=== PATIENT | female | born 2000 | race American Indian/Alaskan Native ===

== ENCOUNTER 2022-05-14 12:34 | Emergency (ER) | payer OTHER ==
[2022-05-14 13:56] VITALS: BP 108/71
--- NOTE | 2022-05-14 14:24 | XRay Report ---
CHEST 2 VIEWS INDICATION / CLINICAL INFORMATION: asthma. FINDINGS: SUPPORT DEVICES: None. HEART / MEDIASTINUM: No significant abnormality. LUNGS / PLEURA: No significant pulmonary or pleural abnormality. No pneumothorax. ADDITIONAL FINDINGS: No significant additional findings. IMPRESSION: 1. No acute findings. Signer Name: Vinicio Schofield MD Signed: 05/14/2022 2:20 PM Workstation Name: [id number]
--- NOTE | 2022-05-14 17:28 | Emergency Department Report ---
- General Chief Complaint: Adult Asthma Stated Complaint: ASTHMA Source: patient Mode of arrival: Ambulatory Limitations: No Limitations - History of Present Illness Initial Comments: 21-year-old female presents to the ED complaining cough, headache, nasal congestion and shortness of breath. Patient states that she has a history of asthma. She states using her albuterol inhaler . Patient states that she just moved here from out of town and her has . She states that symptom has been going on for the last 2 weeks but has worsened over the last day. Patient denies using any fuba-[id number]-[id number] medication. Patient is alert and oriented x3. No acute distress noted. No ill appearance noted MD Complaint: cough, sore throat, sinus pain - Related Data Previous Rx's Medication Instructions Recorded Last Taken Type Albuterol Mdi (or & Nicu Only) 2 puff IH QID PRN 30 Days #8.5 gram 05/14/22 Unknown Rx [ProAir HFA Inhaler] Azithromycin 250 mg PO DAILY 5 Days #6 tab 05/14/22 Unknown Rx predniSONE [Deltasone] 50 mg PO QDAY 5 Days #5 tab 05/14/22 Unknown Rx Allergies Allergy/AdvReac Type Severity Reaction Status Date / Time No Known Allergies Allergy Verified 05/14/22 13:54 ED Review of Systems ROS: Stated complaint: ASTHMA Other details as noted in HPI Constitutional: denies: chills, fever Eyes: denies: eye pain, eye discharge, vision change ENT: denies: ear pain, throat pain Respiratory: cough. denies: shortness of breath, wheezing Cardiovascular: denies: chest pain, palpitations Endocrine: no symptoms reported Gastrointestinal: denies: abdominal pain, nausea, diarrhea Genitourinary: denies: urgency, dysuria, discharge Musculoskeletal: denies: back pain, joint swelling, arthralgia Skin: denies: rash, lesions Neurological: denies: headache, weakness, paresthesias Psychiatric: denies: anxiety, depression Hematological/Lymphatic: denies: easy bleeding, easy bruising ED Past Medical Hx - Medications Home Medications: Home Medications Medication Instructions Recorded Confirmed Last Taken Type Albuterol Mdi (or & Nicu Only) 2 puff IH QID PRN 30 Days #8.5 gram 05/14/22 Unknown Rx [ProAir HFA Inhaler] Azithromycin 250 mg PO DAILY 5 Days #6 tab 05/14/22 Unknown Rx predniSONE [Deltasone] 50 mg PO QDAY 5 Days #5 tab 05/14/22 Unknown Rx ED Physical Exam - General Limitations: No Limitations General appearance: alert, in no apparent distress - Head Head exam: Present: atraumatic, normocephalic - Eye Eye exam: Present: normal appearance - ENT ENT exam: Present: mucous membranes moist - Neck Neck exam: Present: normal inspection - Respiratory Respiratory exam: Present: normal lung sounds bilaterally. Absent: respiratory distress - Cardiovascular Cardiovascular Exam: Present: regular rate, normal rhythm. Absent: systolic murmur, diastolic murmur, rubs, gallop - GI/Abdominal GI/Abdominal exam: Present: soft, normal bowel sounds - Extremities Exam Extremities exam: Present: normal inspection - Back Exam Back exam: Present: normal inspection - Neurological Exam Neurological exam: Present: alert, oriented X3 - Psychiatric Psychiatric exam: Present: normal affect, normal mood - Skin Skin exam: Present: warm, dry, intact, normal color. Absent: rash ED Course Vital Signs 05/14/22 13:55 Temperature 99.3 F Pulse Rate 94 H Respiratory 20 Rate Blood Pressure 108/71 O2 Sat by Pulse 100 Oximetry ED Medical Decision Making - Radiology Data [facility] [address] [place] [address] XRay Report Signed Patient: NISHA BOWERS MR#: [id number] : 2000 Acct:[id number] Age/Sex: 21 / F ADM Date: 05/14/22 Loc: ED Attending Dr: Ordering Physician: ED MD LACI Date of Service: 05/14/22 Procedure(s): XR chest routine 2V Accession Number(s): [id number] cc: ED MD LACI Fluoro Time In Minutes: CHEST 2 VIEWS INDICATION / CLINICAL INFORMATION: asthma. FINDINGS: SUPPORT DEVICES: None. HEART / MEDIASTINUM: No significant abnormality. LUNGS / PLEURA: No significant pulmonary or pleural abnormality. No pneumothorax. ADDITIONAL FINDINGS: No significant additional findings. IMPRESSION: 1. No acute findings. Signer Name: Vinicio Schofield MD Signed: 05/14/2022 2:20 PM Workstation Name: [id number] Transcribed By: BC Dictated By: Vinicio Schofield MD Electronically Authenticated By: Vinicio Schofield MD Signed Date/Time: 05/14/221419 DD/ 141 TD/TT: - Medical Decision Making 21-year-old female presents to the ED complaining cough, headache, nasal congestion and shortness of breath. Patient states that she has a history of asthma. She states using her albuterol inhaler . Patient states that she just moved here from out of town and her has . She states that symptom has been going on for the last 2 weeks but has worsened over the last day. Patient denies using any [id number] medication. Patient is alert and oriented x3. No acute distress noted. No ill appearance noted. Physical examination no wheezing noted on examination. Patient do has nasal turbulent swollen. Postnasal drip noted. Refill patient albuterol inhaler. Rechecked the patient is resting quietly quietly and comfortable and feeling better. I discussed the results of diagnostic study, my clinical impression and the plan for further treatment with the patient. Patient agrees with plan and discharge at this present time. All question addressed. I have given the patient instruction regarding a diagnosis ,expectation ,follow- up and return precaution. I explained to the patient that emergent condition may arise and to return to the ED for new worsen and any new persisting condition. I have explained the importance of following up with the primary care physician or referral physician listed below has instructed. The patient verbalized understanding of discharge instruction. Critical care attestation.: If time is entered above; I have spent that time in minutes in the direct care of this critically ill patient, excluding procedure time. ED Disposition Clinical Impression: Upper respiratory infection Qualifiers: URI type: unspecified URI Qualified Code(s): J06.9 - Acute upper respiratory infection, unspecified Disposition: 01 HOME / SELF CARE / HOMELESS Is pt being admited?: No Does the pt Need Aspirin: No Condition: Stable Instructions: Upper Respiratory Infection, Adult, Rzzd-[id number] Additional Instructions: Take medication as prescribed return to ED for any worsening symptom Prescriptions: Azithromycin 250 mg PO DAILY 5 Days #6 tab predniSONE [Deltasone] 50 mg PO QDAY 5 Days #5 tab Albuterol Mdi (or & Nicu Only) [ProAir HFA Inhaler] 2 puff IH QID PRN 30 Days #8.5 gram PRN Reason: Shortness Of Breath Referrals: [facility] [Provider Group] - 3-5 Days Forms: Work/School Release Form(ED) Time of Disposition: 17:34
== END 2022-05-14 19:03 | disposition home or self-care (01) ==
LOC: ED 12:34
DX: J06.9 Acute upper respiratory infection, unspecified (principal); J45.909 Unspecified asthma, uncomplicated
CPT/HCPCS: 71046; 99283; 99284

== ENCOUNTER 2022-08-27 09:16 | Emergency (ER) | payer OTHER ==
--- NOTE | 2022-08-27 09:53 | Event Note ---
ED Screening Note Date of service: 08/27/22 Time: 09:50 ED Screening Note: This initial assessment/diagnostic orders/clinical plan/treatment(s) is/are subject to change based on patients health status, clinical progression and re- assessment by fellow clinical providers in the ED. Further treatment and workup at subsequent clinical providers discretion. Patient/guardian urged not to elope from the ED as their condition may be serious if not clinically assessed and managed. Patient with a remote history of depression presents with increasiing depression and SI over the last few weeks. Last SI last week with plan to "use razors." No hallucinations or HI. Initial orders include: My Active Orders 08/27/22 09:48 Mental Health Evaluation ONCE Consult to Mental Health [CONS] Stat Acetaminophen Stat Basic Metabolic Panel Stat Complete Blood Count Auto Diff Stat Drugs of Abuse Panel, Urine Stat Salicylate Stat Urinalysis Complete Stat 08/27/22 09:49 HCG Qualitative, Urine Stat
[2022-08-27 11:34] LABS: Blood Urea Nitrogen 12 mg/dL (7-17); Calcium 9.4 mg/dL (8.4-10.2); Hemolysis Index 5
[2022-08-27 11:36] LABS: BUN/Creatinine Ratio 20
[2022-08-27 11:58] LABS: Basophils % (Auto) 0.6 % (0.0-1.8); Eosinophils # (Auto) 0.2 K/mm3 (0.0-0.4); Hematocrit 38.8 % (30.3-42.9); Lymphocytes # (Auto) 1.6 K/mm3 (1.2-5.4); Mean Corpuscular HGB Conc 33 % (30-34); Mean Corpuscular Volume 77 fl (79-97); Monocytes # (Auto) 0.5 K/mm3 (0.0-0.8); Monocytes % (Auto) 8.5 % (0.0-7.3); Platelet Count 229 K/mm3 (140-440); Red Blood Count 5.08 M/mm3 (3.65-5.03); Red Cell Distribution Width 18.2 % (13.2-15.2)
--- NOTE | 2022-08-27 12:23 | Emergency Department Report ---
ED General Adult HPI - General Chief complaint: Psych Stated complaint: KIMBERLEE HELTON Time Seen by Provider: 08/27/22 12:09 Source: patient, RN notes reviewed Mode of arrival: Ambulatory Limitations: No Limitations - History of Present Illness Initial comments: This is a 22-year-old female who presents to the department today with a request for psychiatric evaluation. She denies physical pain. Currently, she is not homicidal or suicidal. She denies hallucinations and access to guns or firearms. She occasionally consumes cigarettes. Last week, she was feeling suicidal. She is not suicidal today. She is not homicidal today. -: days(s), week(s) Severity scale (0 -10): 0 Consistency: intermittent Improves with: none Worsens with: none - Related Data Previous Rx's Medication Instructions Recorded Last Taken Type Albuterol Mdi (or & Nicu Only) 2 puff IH QID PRN 30 Days #8.5 gram 05/14/22 Unknown Rx [ProAir HFA Inhaler] Azithromycin 250 mg PO DAILY 5 Days #6 tab 05/14/22 Unknown Rx predniSONE [Deltasone] 50 mg PO QDAY 5 Days #5 tab 05/14/22 Unknown Rx Allergies Allergy/AdvReac Type Severity Reaction Status Date / Time No Known Allergies Allergy Verified 08/27/22 09:49 ED Review of Systems ROS: Stated complaint: KIMBERLEE HELTON Other details as noted in HPI Comment: All other systems reviewed and negative Psychiatric: as per HPI. denies: homicidal thoughts, suicidal thoughts ED Past Medical Hx - Medications Home Medications: Home Medications Medication Instructions Recorded Confirmed Last Taken Type Albuterol Mdi (or & Nicu Only) 2 puff IH QID PRN 30 Days #8.5 gram 05/14/22 Unknown Rx [ProAir HFA Inhaler] Azithromycin 250 mg PO DAILY 5 Days #6 tab 05/14/22 Unknown Rx predniSONE [Deltasone] 50 mg PO QDAY 5 Days #5 tab 05/14/22 Unknown Rx ED Physical Exam - General Limitations: No Limitations General appearance: alert, in no apparent distress - Head Head exam: Present: atraumatic, normocephalic - Eye Eye exam: Present: normal appearance, EOMI. Absent: nystagmus - ENT ENT exam: Present: normal exam, normal orophraynx, mucous membranes moist, normal external ear exam - Neck Neck exam: Present: normal inspection, full ROM. Absent: tenderness, meningismus - Respiratory Respiratory exam: Present: normal lung sounds bilaterally. Absent: respiratory distress, wheezes, rales, rhonchi, stridor, decreased breath sounds - Cardiovascular Cardiovascular Exam: Present: regular rate, normal rhythm, normal heart sounds. Absent: bradycardia, tachycardia, irregular rhythm, systolic murmur, diastolic murmur, rubs, gallop - GI/Abdominal GI/Abdominal exam: Present: soft. Absent: distended, tenderness, guarding, rebound, rigid, pulsatile mass - Extremities Exam Extremities exam: Present: normal inspection, full ROM, other (2+ pulses noted in the bilateral upper and lower extremities. There is no palpable cord. negative Homans sign. Muscular compartments are soft. The pelvis is stable.). Absent: pedal edema, calf tenderness - Back Exam Back exam: Present: normal inspection, full ROM. Absent: tenderness, CVA tenderness (R), CVA tenderness (L), paraspinal tenderness, vertebral tenderness - Neurological Exam Neurological exam: Present: alert, oriented X3, normal gait, other (No facial droop. Tongue midline. Extraocular movements intact bilaterally. Facial sensation intact to light touch in V1, V2, V3 distribution bilaterally. 5 and a 5 strength in 4 extremities. Sensation intact to light touch in 4 extremities.). Absent: motor sensory deficit - Psychiatric Psychiatric exam: Present: normal mood. Absent: homicidal ideation - Skin Skin exam: Present: warm, dry, intact, normal color. Absent: rash ED Course Vital Signs 08/27/22 09:42 Temperature 98.3 F Pulse Rate 70 Respiratory 18 Rate Blood Pressure 114/89 [Right] O2 Sat by Pulse 100 Oximetry - Reevaluation(s) Reevaluation #1: 08/27/22 13:15 Differential diagnosis, including but not limited to: Behavioral health screening, medical screening Assessment and plan: 22-year-old female, who is currently clinically sober, with a GCS of 15. She is not currently homicidal or suicidal. She is awake, alert, oriented, of sound mind and exhibits decision-making capacity. Her physical examination is benign, unremarkable, and noncontributory. The patient does not meet criteria for 1013 hold or involuntary confinement at this time. Incidentally, the patient requested STI testing while here in the emergency room, abdomen soft and benign, she has no rebound, guarding or peritoneal signs, throat is clear, and she has not endorsed any irritative or obstructive urinary symptoms. Patient advised that STI testing is not an emergent condition, and she can follow-up with an outpatient primary care doctor, urgent care center, or health department for STI testing. She would like to speak to a mental health professional, have placed consultation. I anticipate recommendations for discharge with outpatient follow-up. At the moment, the patient does not appear to have an immediate medical contraindication at this time which would preclude discharge to outpatient follow-up. In the very unlikely event and anticipated events that the psychiatric team advised 1013, the patient at this point time does not appear to have an immediate medical contraindication that would preclude psychiatric placement, disposition and transfer. 08/27/22 14:26 Patient sleeping comfortably and in no acute distress. As expected, the psychiatry team have recommended outpatient follow-up. They do not recommend a 1013. Patient may be discharged to follow-up as an outpatient ED Medical Decision Making - Lab Data Result diagrams: 08/27/22 10:46 08/27/22 10:46 Vital Signs 08/27/22 09:42 Temperature 98.3 F Pulse Rate 70 Respiratory 18 Rate Blood Pressure 114/89 [Right] O2 Sat by Pulse 100 Oximetry Lab Results 08/27/22 08/27/22 08/27/22 Range/Units 10:46 10:46 10:46 WBC 6.1 (4.5-11.0) K/mm3 RBC 5.08 H (3.65-5.03) M/mm3 Hgb 13.0 (10.1-14.3) gm/dl Hct 38.8 (30.3-42.9) % MCV 77 L (79-97) fl MCH 26 L (28-32) pg MCHC 33 (30-34) % RDW 18.2 H (13.2-15.2) % Plt Count 229 (140-440) K/mm3 Lymph % (Auto) 26.0 (13.4-35.0) % Pondera % (Auto) 8.5 H (0.0-7.3) % Eos % (Auto) 4.0 (0.0-4.3) % Baso % (Auto) 0.6 (0.0-1.8) % Lymph # (Auto) 1.6 (1.2-5.4) K/mm3 Pondera # (Auto) 0.5 (0.0-0.8) K/mm3 Eos # (Auto) 0.2 (0.0-0.4) K/mm3 Baso # (Auto) 0.0 (0.0-0.1) K/mm3 Seg Neutrophils % 60.9 (40.0-70.0) % Seg Neutrophils # 3.7 (1.8-7.7) K/mm3 Sodium 141 (137-145) mmol/L Potassium 4.0 (3.6-5.0) mmol/L Chloride 106.0 (98-107) mmol/L Carbon Dioxide 24 (22-30) mmol/L Anion Gap 15 mmol/L BUN 12 (7-17) mg/dL Creatinine 0.6 (0.6-1.2) mg/dL Estimated GFR > 60 ml/min BUN/Creatinine Ratio 20 % Glucose 86 (65-100) mg/dL Calcium 9.4 (8.4-10.2) mg/dL HCG, Quant (0-4) mIU/mL Urine Bilirubin (Negative) Urine RBC (Auto) (0.0-6.0) /HPF U Epithel Cells (Auto) (0-13.0) /HPF Salicylates < 0.3 L (2.8-20.0) mg/dL Acetaminophen (10.0-30.0) ug/mL 08/27/22 08/27/22 08/27/22 Range/Units 10:46 12:24 12:41 WBC (4.5-11.0) K/mm3 RBC (3.65-5.03) M/mm3 Hgb (10.1-14.3) gm/dl Hct (30.3-42.9) % MCV (79-97) fl MCH (28-32) pg MCHC (30-34) % RDW (13.2-15.2) % Plt Count (140-440) K/mm3 Lymph % (Auto) (13.4-35.0) % Pondera % (Auto) (0.0-7.3) % Eos % (Auto) (0.0-4.3) % Baso % (Auto) (0.0-1.8) % Lymph # (Auto) (1.2-5.4) K/mm3 Pondera # (Auto) (0.0-0.8) K/mm3 Eos # (Auto) (0.0-0.4) K/mm3 Baso # (Auto) (0.0-0.1) K/mm3 Seg Neutrophils % (40.0-70.0) % Seg Neutrophils # (1.8-7.7) K/mm3 Sodium (137-145) mmol/L Potassium (3.6-5.0) mmol/L Chloride (98-107) mmol/L Carbon Dioxide (22-30) mmol/L Anion Gap mmol/L BUN (7-17) mg/dL Creatinine (0.6-1.2) mg/dL Estimated GFR ml/min BUN/Creatinine Ratio % Glucose (65-100) mg/dL Calcium (8.4-10.2) mg/dL HCG, Quant < 1 (0-4) mIU/mL Urine Bilirubin Neg (Negative) Urine RBC (Auto) < 1.0 (0.0-6.0) /HPF U Epithel Cells (Auto) 2.0 (0-13.0) /HPF Salicylates (2.8-20.0) mg/dL Acetaminophen 5.0 L (10.0-30.0) ug/mL Critical care attestation.: If time is entered above; I have spent that time in minutes in the direct care of this critically ill patient, excluding procedure time. ED Disposition Clinical Impression: Encounter for behavioral health screening Disposition: 01 HOME / SELF CARE / HOMELESS Is pt being admited?: No Does the pt Need Aspirin: No Condition: Good Additional Instructions: Please follow-up with an outpatient mental health specialist within the next week. Patient may follow-up with your primary care doctor, urgent care center, or health department for STI testing. Recommend that patient practice safe sex practices with any intimate partners, including condom use. Avoid consumption of alcohol, tobacco, smoke products and recreational drugs. Please return to the emergency room right away with new pain, worsened pain, migration of pain, projectile vomiting, change in mental status, confusion, inability tolerate liquid feeds, new, worsened or different symptoms not present on the initial emergency room evaluation Professional and Agency Contacts To help [facility] (20/06) [place] Crisis Line: Suicide Prevention Line: Crisis Text Line: Text ``START to 036825 Emergency: 911 Outpatient COMMUNITY Behavioral Health Resources: [place]: [facility] [address] [place], [place] [address] [place]: [facility] [address] [place] [address] Tuesday thru Tuesday - 8am - 5pm Call to schedule an assessment for mental health and substance abuse programs [place]: [facility] Address: [address] [place] [address] Tuesday thru Tuesday- 7am-2pm [facility] Address: [address] [place] [address] Tuesday thru Tuesday: 8:30AM-5PM OUTPATIENT MENTAL HEALTH RESOURCES [facility], [facility] Ishmael Moy MD: [address] [place] [address], [address] [facility] [address] [place] [address] [place] [address] [facility]: [facility] [address] [place] [address] [place] [address] [phone] [facility]: [facility]: [address] [facility] [address] [place] [address] [place] [address] [facility] [address] [facility]: Yung Griffin MD: [address] [facility] [address] [facility] [id number] [facility]: [address] [place], [place] [id number] [phone] [place] CRISIS AND ACCESS LINE: [facility] - [facility] Days [facility]] - 3-5 Days Forms: Work/School Release Form(ED)
[2022-08-27 13:09] LABS: Bilirubin,Urine NEG (Negative); Blood,Urine MOD (Negative); Color,Urine Yellow (Yellow); Protein,Urine <15 mg/dL mg/dL (Negative)
[2022-08-27 13:12] LABS: Mucus,Urine FEW /HPF; RBC,Urine < 1.0 /HPF (0.0-6.0); Urobilinogen,Urine < 2 mg/dL (<2.0); WBC,Urine < 1.0 /HPF (0.0-6.0)
[2022-08-27 13:19] LABS: HCG Qualitative,Urine Negative (Negative)
[2022-08-27 13:23] LABS: Amphetamine Screen,Urine Negative; Benzodiazepines Screen,Urine Negative; Cocaine Screen,Urine Negative; Methadone Screen,Urine Negative; Opiate Screen,Urine Negative
[2022-08-27 13:44] LABS: Cannabinoid Screen,Urine Positive
--- NOTE | 2022-08-27 13:59 | Consultation ---
History of Present Illness - Reason for Consult Consult date: 08/27/22 Reason for consult: mental health evaluation - depression with SI - History of Present Psychiatric Illness Patient is a 22 year-old patient without previous psychiatric diagnoses. Patient was seen today. Patient was alert and oriented x3 and cooperative throughout the interview. Patient reports coming to ER "to get screened for mental health." Patient reports previous suicide attempt by overdose on her mother's pain medications in her teens. Patient reports intermittent passive suicidal ideation since that attempt, but denies intent or plan since that attempt. Patient reports impulsive episodes and intrusive thoughts "like if I'm sitting with something easily destroyed I might want to see what happens, like curiosity killed the cat," but reports these are manageable; patient reports she indulges in this impulses "sometimes if it's not harmful." Patient reports periods of irritability that are situational. Patient reports difficulty with interpersonal relationships and reports verbal altercations are common. Patient reports she's easily distracted since childhood. Patient reports occasionally seeing non- persistent shadows in the corners of her vision. Patient denies history of willam tory hallucinations or homicidal ideation. Patient reports good appetite and reports variable sleep schedule. Patient reports waking from sleep paralysis a few nights a week. Patient reports being open to counseling at this time. Patient would prefer not to start medications. PAST PSYCHIATRIC HISTORY: Diagnoses: Denies Suicide attempts or Self-harm behavior: Yes 1x in teens by overdose Prior psychiatric hospitalizations: Denies Substance Abuse history: Alcohol, marijuana Previous psychiatric medications tried: Denies Outpatient treatment: Denies PAST MEDICAL HISTORY: None reported Family Psychiatric History: ADHD, Bipolar, Paranoia Schizophrenia, Anxiety, Depression SOCIAL HISTORY Marital Status: Single Living Arrangements: With family Employment Status: Employed Access to guns/weapons: Denies Education: High school History of Abuse: Yes Legal History: Denies REVIEW OF SYSTEMS Constitutional: Negative for weight loss ENT: Negative for stridor Respiratory: Negative for cough or hemoptysis All other systems reviewed and are negative MENTAL STATUS EXAMINATION General Appearance and Behavior: Age appropriate, wearing appropriate clothes, polite with questioning, poor eye contact Cooperation: cooperative Psychomotor Behavior: Psychomotor normal Mood: depressed Affect and affective range: congruent with stated affect, flat affect Thought Process: goal-oriented Thought Content: reality-based Speech: Low volume, Regular rate and slow rhythm Suicidal Ideation: Denies Homicidal Ideation: Denies Hallucination: Denies Delusions: None elicited Impulse Control: Limited Insight and Judgment: Fair Memory: Intact Attention: Distracted Orientation: Alert and oriented x3 ASSESSMENT Major depressive disorder w/ intermittent SI without intent to act TREATMENT - Advised patient follow up with outpatient psychiatry for medication management and counseling - Advised patient take otc melatonin 5 mg 1-2 hrs before bedtime; set scheduled wake time, aim for 7-8 hrs of sleep a night - Advised patient to avoid marijuana and alcohol use Risks, benefits and alternatives of medications discussed with the patient, questions answered and consent obtained from patient: . The patient should be compliant with medications, not to use drugs, and not to drink alcohol. The patient understands that if suicidal ideas, homicidal ideas or any endangering feeling arise, the patient should seek assistance including, but not limited to crisis hotline, and emergency room. PSYCHOTHERAPY: Supportive psychotherapy provided MEDICAL: Per primary team DELIRIUM PRECAUTIONS: Please re-orient patient frequently, keep lights on during the day, and minimize benzodiazepines and opiates as these medications could worsen patient's confusion. [employer] INTELLIGENCE DEVELOPER: Defer to primary DISPOSITION: Do not recommend acute inpatient psychiatric hospitalization at this time. Mental health sensitizer will establish safety plan and provide outpatient psychiatric resources. FOLLOW-UP: Will sign off. Thank you for the consult. Please contact with any questions and/or concerns. Case staffed with Dr. Mark Moran. Medications and Allergies Allergies Allergy/AdvReac Type Severity Reaction Status Date / Time No Known Allergies Allergy Verified 08/27/22 09:49 Home Medications Medication Instructions Recorded Confirmed Last Taken Type Albuterol Mdi (or & Nicu Only) 2 puff IH QID PRN 30 Days #8.5 gram 05/14/22 Unknown Rx [ProAir HFA Inhaler] Azithromycin 250 mg PO DAILY 5 Days #6 tab 05/14/22 Unknown Rx predniSONE [Deltasone] 50 mg PO QDAY 5 Days #5 tab 05/14/22 Unknown Rx Mental Status Exam - Vital signs Last Vital Signs Temp 98.3 F 08/27/22 09:42 Pulse 70 08/27/22 09:42 Resp 18 08/27/22 09:42 BP 114/89 08/27/22 09:42 Pulse Ox 100 08/27/22 09:42 Results Result Diagrams: 08/27/22 10:46 08/27/22 10:46 Abnormal lab results 08/27/22 08/27/22 08/27/22 Range/Units 10:46 10:46 10:46 RBC 5.08 H (3.65-5.03) M/mm3 MCV 77 L (79-97) fl MCH 26 L (28-32) pg RDW 18.2 H (13.2-15.2) % [place] % (Auto) 8.5 H (0.0-7.3) % Salicylates < 0.3 L (2.8-20.0) mg/dL Acetaminophen 5.0 L (10.0-30.0) ug/mL All other labs normal.
[2022-08-27 15:40] VITALS: BP 105/66
== END 2022-08-27 15:40 | disposition home or self-care (01) ==
LOC: ED 09:16
DX: Z13.30 Encounter for screening examination for mental health and behavioral disorders, unspecified (principal); Z79.899 Other long term (current) drug therapy
CPT/HCPCS: 36415; 80048; 80307; 80320; 81001; 81025; 84702; 85025; 99284; G0480